=== PATIENT | male | born 1985 | race Caucasian/White ===

== ENCOUNTER 2024-06-15 15:59 | Emergency (ER) | payer MEDICAID, SELFPAY ==
[2024-06-15 16:32] VITALS: BP 144/88; PULSE 74; TEMP 36.8; O2SAT 98; BMI 31.0
[2024-06-15 17:06] LABS: Internal Control Within Normal Limits; SARS-CoV-2 Ag NEGATIVE (NEGATIVE)
--- NOTE | 2024-06-15 17:24 | ECG_ITS ---
The [facility] Test Date: 2024-06-15 Pat Name: FEDERICO PERES Department: Room: - Gender: Male Kil[employer]ic: : 1985 Requested By: [id number] Order Number: [id number] Reading MD: SEAN HURT Measurements Intervals [place] Rate: 57 P: -74 WI: 130 QRS: 35 QRSD: 98 T: 47 QT: 520 QTc: 515 Interpretive Statements 1300 Junctional rhythm 8304 Long QTc interval 9150 abnormal ECG Compared to ECG 07/16/2019 11:18:40 Junctional rhythm now present Sinus rhythm no longer present ST (T wave) deviation no longer present Electronically Signed On 06-16-2024 6:47:57 EDT by SEAN HURT
[2024-06-15 18:05] LABS: Basophils Absolute Auto 0.1 10^3/uL (0.0-0.1); Basophils Percent Auto 0.3 % (0.2-2.0); Hematocrit 48.2 % (42.0-54.0); Hemoglobin 17.6 g/dL (14.0-18.0); Immature Granulocytes Abs Auto 0.15 10^3/uL (0.00-0.03); Immature Granulocytes Pct Auto 0.7 % (0.0-0.5); Lymphocytes Absolute Auto 2.5 10^3/uL (1.2-3.8); Lymphocytes Percent Auto 11.3 % (20.5-60.0); Mean Corpuscular HGB Conc 36.5 g/dL (29.9-35.2); Mean Corpuscular Hemoglobin 30.4 pg (25.9-34.0); Mean Corpuscular Volume 83.4 fL (80.0-94.0); Mean Platelet Volume 9.7 fL (9.5-13.5); Monocytes Absolute Auto 1.5 10^3/uL (0.3-0.8); Monocytes Percent Auto 6.9 % (1.7-12.0); Neutrophils Absolute Auto 17.5 10^3/uL (1.4-6.5); Neutrophils Percent Auto 80.8 % (43.0-75.0); Platelet Count 387 10^3/uL (150-450); Red Blood Count 5.78 10^6/uL (4.70-6.10); Red Cell Distribution Width 12.4 % (11.0-15.0); White Blood Count 21.7 10^3/uL (4.0-11.0)
--- NOTE | 2024-06-15 18:10 | CT_ITS ---
The [address] [address] Patient Name: FEDERICO PERES MRN: [id number] date: 1985 Sex: M Assigned Patient Location: ER Current Patient Location: ER Accession/Order Number: [id number] Exam Date: 06/15/2024 18:45 Report Date: 06/15/2024 19:55 At the request of: ALLEN MAXWELL Procedure: CT abdomen pelvis w con EXAM: CT abdomen pelvis w con HISTORY: Nausea and vomiting. COMPARISON: 07/16/2019. TECHNIQUE: Enhanced helical acquisition obtained through the abdomen and the pelvis. FINDINGS: Pulmonary granulomatous calcifications within the right lung base. The pleural spaces are clear. Hepatic steatosis. Unremarkable gallbladder. Hepatomegaly with the liver measuring 25 cm craniocaudal length. Mild splenic enlargement with the spleen measuring approximately 14 cm craniocaudal length. The pancreas, adrenal glands and the left kidney are unremarkable. 1.1 cm right renal cyst. No enlarged lymph nodes within the abdomen or the pelvis. Normal appendix. No ascites or focal intraperitoneal fluid collections. CT/CT abdomen pelvis w con IMPRESSION: 1. Hepatic steatosis. Hepatomegaly. 2. Mild splenomegaly. 3. Normal appendix. No inflammatory changes within the abdomen or the pelvis. 4. Small sliding-type hiatal hernia. 5. Right renal cyst. Electronically authenticated by: YESENIA MAHAJAN Date: 06/15/2024 19:55
--- NOTE | 2024-06-15 18:11 | XR_ITS ---
The [address] [address] Patient Name: FEDERICO PERES MRN: [id number] date: 1985 Sex: M Assigned Patient Location: ER Current Patient Location: ER Accession/Order Number: [id number] Exam Date: 06/15/2024 18:48 Report Date: 06/15/2024 19:44 At the request of: ALLEN MAXWELL Procedure: XR chest 1V EXAM: XR chest 1V HISTORY: Nausea and vomiting COMPARISON: 06/09/2020. TECHNIQUE: AP upright portable. FINDINGS: Cardiomediastinal silhouette and pulmonary vascularity are within normal limits. The lungs and the costophrenic angles are clear. XR/XR chest 1V IMPRESSION: Unremarkable chest. Electronically authenticated by: YESENIA MAHAJAN Date: 06/15/2024 19:44
--- NOTE | 2024-06-15 18:13 | ED.GENADUL1 ---
HPI HPI - General Adult General Chief complaint: Nausea/Vomiting/Diarrhea Stated complaint: Flu Like Symptoms Time Seen by Provider: 06/15/24 17:23 Source: patient Mode of arrival: walk-in Limitations: no limitations Related Data Previous Rx's ?Medication ?Instructions ?Recorded hyoscyamine sulfate 0.125 mg 0.125 mg PO Q6H PRN abdominal pain 06/15/24 tablet (Levsin) #12 tabs ondansetron 4 mg disintegrating 4 mg PO Q6H PRN nausea and 06/15/24 tablet vomiting #12 tabs potassium chloride 20 mEq 20 meq PO BID #8 tabs 06/15/24 tablet,extended release Allergies Allergy/AdvReac Type Severity Reaction Status Date / Time No Known Drug Allergies Allergy Verified 06/15/24 16:32 Opioid HPI Opioid Management Most Recent Opioid Data: No Data to Display PFSH PFSH Social History Little interest or pleasure in doing things: not at all Feeling down, depressed, or hopeless: not at all Exam Constitutional Vital Signs, click to edit/add: Last Vital Signs Temp 98.2 F 06/15/24 16:32 Pulse 59 L 06/15/24 18:37 Resp 18 06/15/24 18:37 BP 176/93 H 06/15/24 18:37 Pulse Ox 99 06/15/24 18:37 O2 Del Method Room Air 06/15/24 16:32 Course Vital Signs Vital signs: Vital Signs Temperature 98.2 F 06/15/24 16:32 Pulse Rate 74 06/15/24 16:32 Respiratory Rate 18 06/15/24 16:32 Blood Pressure 144/88 H 06/15/24 16:32 Pulse Oximetry 98 06/15/24 16:32 Oxygen Delivery Method Room Air 06/15/24 16:32 Temperature 98.2 F 06/15/24 16:32 Pulse Rate 59 L 06/15/24 18:37 Respiratory Rate 18 06/15/24 18:37 Blood Pressure 176/93 H 06/15/24 18:37 Pulse Oximetry 99 06/15/24 18:37 Oxygen Delivery Method Room Air 06/15/24 16:32 Medical Decision Making MDM Narrative Medical decision making narrative: Patient was treated with IV fluids, Zofran, Ativan, Pepcid with significant improvement. He was in the emergency department over 4 hours and did not have any episodes of emesis while in the ER. Laboratory studies show leukocytosis with hypokalemia and elevated lactic acid. Patient was treated with additional IV fluids with IV potassium, however he was able to tolerate oral potassium as well. No EKG changes, CT of the abdomen and pelvis is unremarkable and chest x-ray shows no evidence of acute cardiopulmonary changes. Patient was reevaluated by attending physician, abdomen is soft and benign. Patient is comfortable discharge home, he was given antiemetics, Levsin, follow-up with PCP and return to the ER if symptoms change or worsen. SHARED APC VISIT, PHYSICIAN ATTESTATION: [id number] I performed a substantive part of the MDM during the patient?s E/M visit. I personally evaluated and examined the patient. I personally made or approved the documented management plan and acknowledge its risk of complications. Medical Records Medical records reviewed: Yes I reviewed the patient's medical records Lab Data Lab results reviewed: Yes I reviewed the patient's lab results Labs: Lab Results 06/15/24 06/15/24 06/15/24 Range/Units 16:38 17:55 19:37 WBC 21.7 H (4.0-11.0) 10^3/uL RBC 5.78 (4.70-6.10) 10^6/uL Hgb 17.6 (14.0-18.0) g/dL Hct 48.2 (42.0-54.0) % MCV 83.4 (80.0-94.0) fL MCH 30.4 (25.9-34.0) pg MCHC 36.5 H (29.9-35.2) g/dL RDW 12.4 (11.0-15.0) % Plt Count 387 (150-450) 10^3/uL MPV 9.7 (9.5-13.5) fL Neut % (Auto) 80.8 H (43.0-75.0) % Lymph % (Auto) 11.3 L (20.5-60.0) % [place] % (Auto) 6.9 (1.7-12.0) % Eos % (Auto) 0.0 L (0.9-7.0) % Baso % (Auto) 0.3 (0.2-2.0) % Neut # (Auto) 17.5 H (1.4-6.5) 10^3/uL Lymph # (Auto) 2.5 (1.2-3.8) 10^3/uL [place] # (Auto) 1.5 H (0.3-0.8) 10^3/uL Eos # (Auto) 0.0 (0.0-0.7) 10^3/uL Baso # (Auto) 0.1 (0.0-0.1) 10^3/uL Abs Immat Gran (auto) 0.15 H (0.00-0.03) 10^3/uL Imm/Tot Granulo (auto) 0.7 H (0.0-0.5) % Sodium 133 L (136-145) mmol/L Potassium 2.5 L* (3.5-5.1) mmol/L Chloride 92 L (98-107) mmol/L Carbon Dioxide 29.8 (21.0-32.0) mmol/L Anion Gap 13.7 BUN 25.0 H (7.0-18.0) mg/dL Creatinine 1.28 (0.70-1.30) mg/dL Est GFR ( Amer) >60 (>=60) Est GFR (Non-Af Amer) >60 (>=60) BUN/Creatinine Ratio 19.5 Glucose 120 H (74-106) mg/dL Lactate 2.6 H* (0.4-2.0) mmol/L Calcium 10.4 H (8.5-10.1) mg/dL Total Bilirubin 4.3 H (0.2-1.0) mg/dL AST 19 (15-37) U/L ALT 30 (16-63) U/L Alkaline Phosphatase 90 (46-116) U/L Total Protein 8.5 H (6.4-8.2) g/dL Albumin 5.2 H (3.4-5.0) g/dL Globulin 3.3 g/dL Albumin/Globulin Ratio 1.6 Lipase 17.0 (16.0-77.0) U/L Urine Color Yellow (YELLOW) Urine Clarity Clear (CLEAR) Urine pH 7.5 (5.0-9.0) Ur Specific [place] 1.010 (1.005-1.025) Urine Protein Trace (NEG/TRACE) mg/dL Urine Glucose (UA) Negative (NEGATIVE) mg/dL Urine Ketones Negative (NEGATIVE) mg/dL Urine Occult Blood Negative (NEGATIVE) Urine Nitrite Negative (NEGATIVE) Urine Bilirubin Negative (NEGATIVE) Urine Urobilinogen 1.0 (0.2-1.0) EU/dL Ur Leukocyte Esterase Negative (NEGATIVE) SARS-CoV-2 Ag (CV2AG) Negative (NEGATIVE) Imaging Data CT scan - abdomen: Attestation: I have reviewed the pertinent imaging results. Radiologist's impression: ITS Impressions Abdomen/Pelvis CT 06/15/24 18:10 IMPRESSION: 1. Hepatic steatosis. Hepatomegaly. 2. Mild splenomegaly. 3. Normal appendix. No inflammatory changes within the abdomen or the pelvis. 4. Small sliding-type hiatal hernia. 5. Right renal cyst. Electronically authenticated by: YESENIA MAHAJAN Date: 06/15/2024 19:55 Chest X-Ray 06/15/24 18:11 IMPRESSION: Unremarkable chest. Electronically authenticated by: YESENIA MAHAJAN Date: 06/15/2024 19:44 ECG Data Attestation: I personally reviewed and interpreted this ECG as follows: (Normal sinus rhythm at a rate of 57, no acute ST elevation or ectopy. EKG reviewed by attending physician) Discharge Plan Discharge Chief Complaint: Nausea/Vomiting/Diarrhea Clinical Impression: Nausea & vomiting, Acute hypokalemia Patient Disposition: Home, Self-Care Time of Disposition Decision: 20:42 Condition: Good Prescriptions / Home Meds: New hyoscyamine sulfate [Levsin] 0.125 mg tablet 0.125 mg PO Q6H PRN (Reason: abdominal pain) Qty: 12 0RF ondansetron 4 mg tablet,disintegrating 4 mg PO Q6H PRN (Reason: nausea and vomiting) Qty: 12 0RF potassium chloride 20 mEq tablet extended release 20 meq PO BID Qty: 8 0RF Print Language: Japanese Instructions: Hypokalemia (ED), Acute Nausea and Vomiting (ED) Referrals: Leonard Ching MD [Primary Care Provider] - 1 week
[2024-06-15 18:21] LABS: Alanine Aminotransferase 30 U/L (16-63); Albumin Globulin Ratio 1.6; Albumin Level 5.2 g/dL (3.4-5.0); Alkaline Phosphatase 90 U/L (46-116); Anion Gap 13.7; Aspartate Amino Transferase 19 U/L (15-37); BUN Creatinine Ratio 19.5; Bilirubin Total 4.3 mg/dL (0.2-1.0); Calcium 10.4 mg/dL (8.5-10.1); Carbon Dioxide 29.8 mmol/L (21.0-32.0); Chloride 92 mmol/L (98-107); Estimated GFR (African America >60 (>=60); Estimated GFR (Non-African Ame >60 (>=60); Globulin 3.3 g/dL; Glucose 120 mg/dL (74-106); Sodium 133 mmol/L (136-145); Total Protein 8.5 g/dL (6.4-8.2)
[2024-06-15 18:28] LABS: Lactate/Lactic Acid 2.6 mmol/L (0.4-2.0); Potassium 2.5 mmol/L (3.5-5.1)
[2024-06-15] MEDS: 0.9 % SODIUM CHLORIDE 1,000 ML 999 ML IV (18:30)
[2024-06-15] MEDS: ONDANSETRON PF 4 MG/2 ML VIAL IV (18:31)
[2024-06-15] MEDS: FAMOTIDINE/PF 20 MG/2 ML VIAL IV (18:33)
[2024-06-15] MEDS: LORAZEPAM 2 MG/ML VIAL 1 MG IV (18:35)
[2024-06-15 18:37] VITALS: BP 176/93; PULSE 59; O2SAT 99
[2024-06-15] MEDS: POTASSIUM CHLORIDE IN 0.9%NACL 1,000 ML 250 ML IV (19:13)
[2024-06-15 20:20] LABS: Bilirubin Urine NEGATIVE (NEGATIVE); Blood Urine NEGATIVE (NEGATIVE); Clarity Urine CLEAR (CLEAR); Color Urine YELLOW (YELLOW); Glucose Urine UA NEGATIVE (NEGATIVE); Ketones Urine NEGATIVE (NEGATIVE); Leukocyte Esterase Urine NEGATIVE (NEGATIVE); Nitrite Urine NEGATIVE (NEGATIVE); Protein Urine TRACE mg/dL (NEG/TRACE); pH Urine 7.5 (5.0-9.0)
[2024-06-15 20:21] LABS: Urine Microscopic Indicated NO
[2024-06-15] MEDS: POTASSIUM CHLORIDE 10 MEQ ER TABLET 40 MEQ PO (20:36)
--- NOTE | 2024-06-15 20:39 | PC.NURSE ---
Pt ordered PO potassium and was able to take with water and jello. Pt has not had any episodes of vomiting this shift.
[2024-06-15 21:12] LABS: Lactate/Lactic Acid 1.6 mmol/L (0.4-2.0)
[2024-06-17] MEDS: ONDANSETRON 4 MG RAPDIS TABLET SL (05:57)
== END 2024-06-15 21:02 | disposition home or self-care (01) ==
PROVIDERS: Emergency Medicine; Physician Assistant; Emergency Provider Emergency Medicine; PCP Family Medicine
DX: R11.2 Nausea with vomiting, unspecified (principal); E87.6 Hypokalemia; Z20.822 Contact with and (suspected) exposure to COVID-19
CPT/HCPCS: 36415; 71045; 74177; 80053; 81003; 83605; 83690; 85025; 87811; 93005; 96361; 96365; 96366; 96375; 99285; J2060; J2405; Q9967